=== PATIENT | male | born 1980 | race African-American/Black ===

== ENCOUNTER 2017-12-28 12:26 | Day surgery (SDC) | payer OTHER ==
[2017-12-25 09:09] VITALS: BMI 35.9
[2017-12-28] MEDS ORDERED: MIDAZOLAM HCL 2 MG/2 ML SINGLE DOSE VIAL ONE (14:01)
[2017-12-28] MEDS ORDERED: fentaNYL CITRATE 250 MCG/5 ML VIAL ONE (14:02)
[2017-12-28] MEDS ORDERED: LIDOCAINE HCL/PF 2% SDV 5ML VIAL ONE (14:02)
[2017-12-28] MEDS ORDERED: PROPOFOL 20 ML ONE ×4 (14:02)
[2017-12-28] MEDS ORDERED: ROCURONIUM BROMIDE 50 MG/5 ML VIAL ONE (14:02)
[2017-12-28] MEDS ORDERED: SUCCINYLCHOLINE CHLORIDE 200 MG/10 ML VIAL ONE (14:02)
--- NOTE | 2017-12-28 14:26 | HP ---
History & Physical Update - History History: No Change - Physical Physical: No Change - Assessment Assessment: No Change - Plan Currently as noted:: Laparoscopy placement PD catheter and repair of umbilical hernia
[2017-12-28] MEDS ORDERED: ceFAZolin SODIUM 1 GM VIAL IVPB ONE (14:39)
[2017-12-28] MEDS ORDERED: BUPIVACAINE HCL/PF 0.5% (5MG/ML) 10 ML VIAL ONE (14:44)
[2017-12-28] MEDS ORDERED: ceFAZolin SODIUM 1 GM VIAL ONE (14:44)
[2017-12-28] MEDS ORDERED: DEXAMETHASONE SOD PHOSPHATE 4 MG/1 ML VIAL ONE (14:45)
[2017-12-28] MEDS ORDERED: BUPIVACAINE HCL/PF 0.5% (5MG/ML) 10 ML VIAL IJ ONE ×2 (14:49→15:21)
[2017-12-28] MEDS ORDERED: NEOSTIGMINE METHYLSULFATE 0.5 MG/ML - 10 ML MDV ONE (15:00)
[2017-12-28] MEDS ORDERED: GLYCOPYRROLATE 0.2 MG/1 ML VIAL ONE (15:01)
[2017-12-28] MEDS ORDERED: oxyCODONE HCL 5 MG TABLET PO PRN ×4 (15:05→16:16)
[2017-12-28] MEDS ORDERED: ONDANSETRON 4 MG/2 ML VIAL IVPUSH PRN (15:05)
[2017-12-28] MEDS ORDERED: ACETAMINOPHEN 325 MG TABLET (FP) PO PRN ×3 (16:03→16:16)
--- NOTE | 2017-12-28 16:03 | OP ---
Operative Note - Note: Operative Date: 12/28/17 Pre-Operative Diagnosis: Chronic Kidney Disease Stage 5. Umbilical hernia Operation: Laparoscopy, placement of peritoneal dialysis catheter. Repair of umbilical hernia with mesh Findings: No intraabdominal adhesions. 2 cm umbilical hernia Implants: [place] neck double cuff curled tenchkoff catheter. Medium ventralex mesh Post-Operative Diagnosis: Same as Pre-op Surgeon: Jose Miguel Wang Anesthesiologist/[employer] OPERATOR: María Pope Anesthesia: General Estimated Blood Loss (mls): 10
[2017-12-28 16:22] VITALS: TEMP 97.6
[2017-12-28] MEDS ORDERED: ACETAMINOPHEN 325 MG TABLET (FP) ONE (17:09)
[2017-12-28] MEDS ORDERED: oxyCODONE HCL 5 MG TABLET ONE (17:20)
[2017-12-28 17:57] VITALS: BP 126/69; PULSE 66
--- NOTE | 2017-12-28 20:45 | OP ---
DATE OF OPERATION: 12/28/2017 SURGEON: Jose Miguel Wang MD PROCEDURE: Laparoscopy with placement of peritoneal dialysis catheter and repair of umbilical hernia with mesh. PREOPERATIVE DIAGNOSES: Chronic kidney disease and umbilical hernia. POSTOPERATIVE DIAGNOSES: Chronic kidney disease and umbilical hernia. ANESTHESIA: General. ANESTHESIOLOGIST: María Pope MD OPERATIVE FINDINGS: There were no intraabdominal adhesions. There was no excessive omental fatty tissue in the pelvis. There was a 2-cm umbilical hernia defect. OPERATIVE PROCEDURE: Following routine patient identification with side and site verification, intravenous sedation and general anesthesia were induced. The abdomen was prepped with ChloraPrep. Timeout was performed. A Veress needle was inserted through the umbilicus, into the peritoneal cavity. A pneumoperitoneum was established with carbon dioxide to 15 mmHg pressure. A small incision was made in the midline above the umbilicus, and a 5-mm Visiport placed under laparoscopic visualization. The Veress needle was removed. Abdominal exploration was carried out. A second 5-mm port was placed in the left abdominal wall under direct visualization. The fatty tissue in the pelvis was gently grasped to see if it mobilized cephalad. Most of it was adherent to the sigmoid colon and cecum and could not be moved. An incision was then made to the left and above the umbilicus, and a bladeless 8-mm trocar was advanced to the underside of the parietal peritoneum and was then directed inferiorly towards the pelvis where it entered the peritoneal cavity at the upper border of the true pelvis. A curled swan neck, double-cuff Tenckhoff catheter was then straightened and passed through the port and deployed into the pelvis. The port was removed, leaving the inner cuff just deep to the fascia. The other end of the catheter was attached to a curved metal tunneler which was passed in the subcutaneous tissues to exit in the right abdominal wall at the previously chosen site. The Luer lock adapter was placed on the end of the catheter, and then, 1 L of saline was run into the peritoneal cavity under gravity in less than 3 minutes. The bag was dropped to the floor, and the fluid drained well and was capped at 800 mL. Pneumoperitoneum was then re-established. Using Harmonic scalpel, the fatty tissue adherent to the underside of the umbilicus was mobilized away to leave area for adherence of the mesh. A skin incision was made through the umbilicus, and a medium Ventralex mesh was rolled and passed into the peritoneal cavity. It was pulled taut against the anterior abdominal wall. AbsorbaTack was used to adhere the edges of the mesh to the fascia. The excess mesh was trimmed. All ports were removed. The subcutaneous tissues were approximated with interrupted sutures of 3-0 Vicryl, and the skin incisions were closed with subcuticular sutures of Biosyn. Dermabond glue was applied to the wounds as a dressing. A BIOPATCH and BIOCLUSIVE dressing were applied over the end of the catheter, which was then covered with an ABD pad. The patient was then awakened from anesthesia, extubated, and taken to the recovery room. Rogerio [id number]
== END 2017-12-28 19:30 | disposition home or self-care (01) ==
LOC: JASU-SURG 12:26
PROVIDERS: ATTEND Surgery
PROC: 0WHG4YZ Insertion of Other Device into Peritoneal Cavity, Percutaneous Endoscopic Approach (ICD-10-PCS; principal; 2017-12-28 14:00)
PROC: 0WUF4JZ Supplement Abdominal Wall with Synthetic Substitute, Percutaneous Endoscopic Approach (ICD-10-PCS; 2017-12-28 14:00)
DX: I12.0 Hypertensive chronic kidney disease with stage 5 chronic kidney disease or end stage renal disease (principal); N18.6 End stage renal disease; Z99.2 Dependence on renal dialysis; K42.9 Umbilical hernia without obstruction or gangrene
CPT/HCPCS: 94760